=== PATIENT | female | born 1955 | race Caucasian/White ===

== ENCOUNTER → 2018-12-13 06:48 | Outpatient (CLI) | payer OTHER, SELFPAY ==
--- NOTE | 2018-12-13 10:29 | NEURO ---
NCS and/or EMG Patient Report Ordering Doctor: Saul Fontaine DATE OF SERVICE: 12/13/18 This is a left upper extremity nerve conduction study performed on this 63-year-old female with a history of carpal tunnel on the right with carpal tunnel release. She now has pain and numbness in her left arm into her left thumb without neck pain. On examination she does have pain on palpation at the first MP joint. Left upper extremity sensory and motor nerve conduction studies performed demonstrating prolongation of the median motor and sensory distal latencies, with preservation of amplitudes and conduction velocities. The ulnar motor and sensory and the radial sensory response is normal. The median and ulnar F-wave latencies are normal. Impression: This is an abnormal nerve conduction study of the left upper extremity consistent with mild carpal tunnel syndrome at the left wrist however this does not appear to be clinically significant.
== END ==
PROVIDERS: Family Provider Student in an Organized Health Care Education/Training Program; PCP Student in an Organized Health Care Education/Training Program; Referring Provider Student in an Organized Health Care Education/Training Program; Visit Provider Student in an Organized Health Care Education/Training Program
DX: R20.2 Paresthesia of skin (principal)
CPT/HCPCS: 95910

== ENCOUNTER → 2019-03-13 10:53 | Outpatient (CLI) | payer OTHER, SELFPAY ==
--- NOTE | 2019-03-13 11:04 | EKG12_ITS ---
Test Reason : PRE-OP Blood Pressure : / mmHG Vent. Rate : 074 BPM Atrial Rate : 074 BPM P-R Int : 180 ms QRS Dur : 096 ms QT Int : 398 ms P-R-T Axes : 062 -09 020 degrees QTc Int : 441 ms Normal sinus rhythm Normal ECG When compared with ECG of 31-DEC-2016 06:48, No significant change was found Confirmed by LOC TO, FAMILIA [id number]), associate editor MEHUL ORTIZ ([id number] on 03/15/2019 11:59:00 AM Referred By: Viridiana Lisa Confirmed By:WOOD MONTERROSO MD
[2019-03-13 12:33] LABS: Hematocrit 42.5 % (37-47); Hemoglobin 13.6 g/dL (12.0-15.0); Mean Corpuscular Hgb 29.8 pg (27.0-32.0); Mean Corpuscular Volume 93.2 fL (81-99); Mean Platelet Vol. 10.9 fl (6.2-12.0); Platelet Count 290 K/mm3 (150-450); RBC Distribution Width CV 13.6 % (11.6-14.6); RBC Distribution Width SD 46.1 fl (35.1-43.9); Red Blood Count 4.56 M/mm3 (4.2-5.4); White Blood Count 4.4 K/mm3 (4.4-11.0)
[2019-03-13 12:51] LABS: Hemoglobin A1c 6.1 % (4.2-6.3)
[2019-03-13 13:11] LABS: Anion Gap 5 (5-15); BUN 9 mg/dL (7-18); BUN/Creat Ratio 12.3 RATIO (10-20); Calcium,Total 8.8 mg/dL (8.5-10.1); Chloride 108 mmol/L (98-107); Creatinine, Serum 0.73 mg/dL (0.55-1.02); EST Glomerular Filtration Rate 86 mL/min (>60); Est Glom Filt Rate - Afr Amer 104 mL/min (>60); Glucose 107 mg/dL (74-106); Sodium Level 143 mmol/L (136-145)
== END ==
PROVIDERS: Family Provider Student in an Organized Health Care Education/Training Program; PCP Student in an Organized Health Care Education/Training Program; Referring Provider Physician Assistant; Visit Provider Physician Assistant
DX: Z01.818 Encounter for other preprocedural examination (principal); E11.9 Type 2 diabetes mellitus without complications; Z01.810 Encounter for preprocedural cardiovascular examination
CPT/HCPCS: 36415; 80048; 83036; 85027; 93005